=== PATIENT | male | born 1965 | race American Indian/Alaskan Native ===

== ENCOUNTER 2022-01-02 12:53 | Outpatient (CLI) | payer MEDICARE ==
--- NOTE | 2022-01-02 15:42 | XRay Report ---
Knees bilateral 2 views INDICATION: Bilateral knee pain IMPRESSION: Moderate tricompartmental degenerative changes of the right knee especially the lateral f emorotibial compartment. There is mild degenerative changes of the left knee with some narrowing of t he medial femorotibial compartment. Signer Name: Jean Claude Li MD Signed: 01/02/2022 3:38 PM Workstation Name: [id number]
== END 2022-01-02 12:54 | disposition home or self-care (01) ==
LOC: XRAY 12:53
PROVIDERS: ATTEND Orthopaedic Surgery
DX: M17.0 Bilateral primary osteoarthritis of knee (principal)
CPT/HCPCS: 73565